=== PATIENT | female | born 1945 | race Caucasian/White ===

== ENCOUNTER → 2022-08-25 | Outpatient (CLI) | payer MEDICARE ==
[2022-08-25 12:48] VITALS: BP 186/80; PULSE 109; RESP 18; TEMP 98.1
--- NOTE | 2022-08-25 15:47 | P.PAINPG ---
PQRS Measure Charge Sheet Comment: HISTORY OF PRESENT ILLNESS: 77 yr old female as a referral from Dr Waters presents today w severe and chronic LBP secondary to DDD, spondylosis and facet arthropathy without myelopathy for evaluation. Pt states pain level is provoked at 10 /10 in intensity, constant, localized in the lower aspect of the lumbar spine where it meets the tailbone, sharp in character w shooting pain towards the BL buttocks and L calf. Pain is provoked by laying flat on her back. Pain is alleviated by medications (Tyl, Prednisone taper), topicals, injections (LESIs L5-S1 in Fall, 2021), heat, PT x 3 sessions which provoked pain, chiropractic treatments x 2 in the last 2 months which were ineffective, repositoning and rest. PMH: OA, HTN, Hyperlipidemia, DMII, Hypothyroidism, GERD, Iron Deficiency Anemia PSH: Small Bowel Resection (3 ft s/p CA diagnosis), Renal CA SH: Former tobacco user, No ETOH abuse, No illicit drug use. and lives w spouse. FH: Mo- COPD/ CAD All: NKDA Meds: See list REVIEW OF ORGAN SYSTEMS: CONSTITUTIONAL: No fevers or chills. No recent weight loss. NEUROLOGICAL: + numbness and tingling along the distal extremities. No seizure disorders or headaches. MUSCULOSKELETAL: + pain PSYCHIATRIC: Denies current depression or suicidal thoughts. Physical Examinations : Constitutional : Cooperative , not in acute distress . Neurologic : Cranial nerve II to XII intact. No focal neurological deficits. Psychiatric : alert & oriented x 3. Matching mood & appropriate affect. Judgment & insight intact. Musculoskeletal : Cervical Spine Motor strength in the deltoid and biceps: Normal right side. Normal Left side Motor strength biceps and the wrist extensors: Normal right side . Normal left side Motor strength in the triceps muscle: Normal right side. Normal left side Deep tendon reflexes: Normal at the biceps. Normal at Brachioradialis. Normal at triceps Vertebral body tenderness to deep palpation over Cervical facet loading test: positive bilaterally Spurling test: positive bilaterally Neck distraction test: positive bilaterally Octavio sign: positive bilaterally Lumbar spine Motor strength lower extremities ,thigh and legs 5/5 Right side , 5/5 Left side Deep tendon reflexes : Normal Knee Jerk. Normal Ankle Jerk Vertebral body tenderness over L5 Lumbar facet Loading Test: positive Right / positive Left Range of motion of the lumbar spine Flexion 30 degrees, extension 10 degrees Straight Leg Raise test: Left/ Right positive at degree Angie test: positive right / positive left. Severe tenderness over the Sacroiliac joint on the Right / Left sides Gaenslen test: positive bilaterally Seated flexion test: positive bilaterally. Sacral spine : Severe tenderness over the Sacroiliac joint: right side / left side Range of motion: Flexion of the lumbar spine <60 degrees Range of motion: Extension of the lumbar spine <20 degrees Gaenslen's Test positive Randolph's Test positive Angie test: positive right side / left side Thigh Thrust Test Sacral Thrust Test Imaging: MRI without contrast of the lumbar spine from 02/19/22 reviewed Assessment/ Plan : Lumbar DDD Recommendation of CARRIE L5-S1. Bhumi series of injections, up to 4 within a 12 month timeframe, for optimal pain relief. Risks, benefits of procedure discussed and patient verbalized understanding. Admits to aspirin or anti- coagulant use or medical history of diabetes. Protocol for discontinuation/ continuation of medications dasia procedure discussed. [place] 5/325 # 18 NR. Use, side effects and adverse reactions discussed, safe storage discussed and patient verbalized understanding. All questions answered. I have spent greater than 30 minutes on patient care today. Dr Case was available by phone for the evaluation of this patient. The time was used to review the medical records including relevant urine studies and Prescription history (MAPs), review of the available imaging, evaluation and examination of the patient, coordination of care with the medical staff and if applicable referring physicians, as well as creation of the medical record - Pain Location Bilateral Lower Back Non-Pharmacological Interventions: Chiropractic Treatment, Heat, Inactivity, Physical Therapy, Position/Reposition, Sitting Pharmacological Interventions: Epidural, PRN Medication, Topical Medication Home Medications: Ambulatory Orders HYDROcodone/APAP 5-325MG [[place] 5-325] 1 tab PO Q4HR PRN 3 Days #18 tab 08/25/22 Controlled Substance Measures - Controlled Substance Measures Is patient prescribed a controlled substance at discharge?: Yes When asked, does pt state using other controlled substances?: No If prescribed controlled substance>3 days was MAPS reviewed?: Prescribed <3 Days If Rx opioid, was Start Talking consent form obtained?: Yes Was information provided regarding opioid addiction?: Yes
== END ==
LOC: PNWHC3 12:09
PROVIDERS: ATTEND Anesthesiology
DX: M51.36 Other intervertebral disc degeneration, lumbar region (principal); M19.90 Unspecified osteoarthritis, unspecified site; I10 Essential (primary) hypertension; E78.5 Hyperlipidemia, unspecified; E11.9 Type 2 diabetes mellitus without complications; E03.9 Hypothyroidism, unspecified; K21.9 Gastro-esophageal reflux disease without esophagitis
CPT/HCPCS: 99211

== ENCOUNTER → 2022-11-24 | Outpatient (CLI) | payer MEDICARE ==
[2022-11-24 11:15] VITALS: BP 177/99; PULSE 100; RESP 18; TEMP 98.3
--- NOTE | 2022-11-24 15:30 | P.PAINPG ---
PQRS Measure Charge Sheet Comment: A 77 yr old female w at side with a history of severe and chronic LBP secondary to lumbar DDD and spondylosis with facet arthropathy without myelopathy presents today for evaluation s/p CARRIE L5-S1. Pt states she experienced 100 % pain relief x 2 mo s/p procedure. Pain level is provoked at 6 /10 in intensity, constant, localized in the lumbar spine, achy in character w shooting L & R of midline. Pain is provoked by walking for periods of 15 min or more. Pain is alleviated with medications (Tylenol), injections, chiropractic treatments in the past which have provoked pain, massage is at home, hot showers and rest. Interventional pain procedures completed include CARRIE L5-S1 x1 Patient is currently on Tyl Patient denies any side effects of the medication(s), denies excessive drowsiness or sleepiness, denies suicidal ideation and reports that the current pain medication is helping to control the pain and improve activities of daily living. Patient denies any motor or sensory deficits. Patient denies any fever or night sweats, denies any change in the bowel movements or urination. Physical Examination: -Constitutional: Cooperative. Not in acute distress . - Neurologic: Cranial nerve II to XII intact. No focal neurological deficits. - Psychatric: Alert & oriented x 3. Matching mood & appropriate affect. Judgment and insight intact. - Musculoskeletal: Cervical spine: Muscle bulk/ tone/ strength in the bilateral upper extremities normal Vertebral body tenderness to palpation over Spurling test positive Distraction test positive Facet loading test positive TTP Thoracic spine Muscle bulk / tone/ strength in the bilateral paraspinal muscles normal Vertebral body tender to palpation over Facet loading test positive TTP Lumbar spine: Motor bulk/ tone/ strength lower extremities , thigh and legs : 5/5 Deep tendon reflexes : Normal Knee Jerk. Normal Ankle Jerk . Vertebral body tenderness to palpation over L5 Lumbar Facet Loading Test positive Straight Leg Raise: positive at 30 degrees right side/ left side Gaenslen's Test positive Sacral spine : Severe tenderness over the Sacroiliac joint: right side / left side Range of motion: Flexion of the lumbar spine <60 degrees Range of motion: Extension of the lumbar spine <20 degrees Gaenslen's Test positive right side / left side Angie test: positive right side / left side Thigh Thrust Test positive right side / left side Sacral Thrust Test positive right side / left side Assessment and plan: Chronic LBP secondary to lumbar DDD, spondylosis with facet arthropathy without myelopathy Recommendation of CARRIE L5-S1 #2. May need a series of injections for optimal pain relief. Risks, benefits of procedure discussed and pt verbalized u nderstanding. Admits to anticoagulant use or medical history of diabetes. Protocol for discontinuation/ continuation of medications dasia procedure discussed. All questions answered. I have spent less than 30 minutes on patient care today. Dr Case was available by phone for the evaluation of this patient. The time was used to review the medical records including relevant urine studies and Prescription history (MAPs), review of the available imaging, evaluation and examination of the patient, coordination of care with the medical staff and if applicable referring physicians, as well as creation of the medical record PQRS Narrative: Hx Alcohol Use (MH) No Home Medications: Ambulatory Orders Acetaminophen [Tylenol Extra Strength] 1,000 mg PO TID PRN 09/22/22 Ascorbic Acid [Vitamin C] 500 mg PO DAILY 09/22/22 Atorvastatin [Lipitor] 20 mg PO HS 09/22/22 Biotin/Lutein [Biotin Plus 5,000 Mcg Tablet] 2 each PO DAILY 09/22/22 Cyanocobalamin (Vitamin B-12) [Vitamin B-12] 3,000 mcg PO DAILY 09/22/22 Famotidine [Pepcid] 20 mg PO BID 09/22/22 Folate 666 mcg PO DAILY 09/22/22 Folic Acid 0.4 mg PO DAILY 09/22/22 Levothyroxine Sodium 200 mcg PO Q48H 09/22/22 Losartan [Cozaar] 50 mg PO DAILY 09/22/22 Multivitamin [Multivitamins Adult Gummies] 2 each PO DAILY 09/22/22 [place]-3/Dha/Epa/Fish Oil [Fish Oil 1,000 mg Softgel] 1 each PO DAILY 09/22/22 Tolterodine Tartrate [Tolterodine Tartrate ER] 4 mg PO HS 09/22/22 Vitamin A 2,400 mcg PO DAILY 09/22/22 Vitamin E (Dl,Tocopheryl Acet) [Vitamin E (1000 Iu = 450 MG)] 1,000 units PO DAILY 09/22/22 Zinc Citrate [Zinc] 45 mg PO DAILY 09/22/22 metFORMIN HCL 1,000 mg PO BID 09/22/22 Controlled Substance Measures - Controlled Substance Measures Is patient prescribed a controlled substance at discharge?: No
== END ==
LOC: PNWHC3 09:59
PROVIDERS: ATTEND Specialist
DX: M51.36 Other intervertebral disc degeneration, lumbar region (principal); M47.816 Spondylosis without myelopathy or radiculopathy, lumbar region; G89.29 Other chronic pain; Z91.048 Other nonmedicinal substance allergy status
CPT/HCPCS: 99211

== ENCOUNTER 2022-12-23 10:33 | Day surgery (SDC) | payer MEDICARE ==
[~2022-12-23 10:33] MED LIST: LACTATED RINGERS 1,000 ML IV SCH; LIDOCAINE 1% (10MG/ML) FOR IV START INTRADERMA PRN
[2022-12-23 11:17] VITALS: TEMP 97.5
[2022-12-23 11:29] LABS: Glucose,Whole Blood 128 mg/dL (70-110)
[2022-12-23] MEDS ORDERED: IOPAMIDOL M200 10 ML VIAL ONE (11:37)
[2022-12-23] MEDS ORDERED: methylPREDNISolone ACETATE 40 MG/ML 1 ML VIAL ONE (11:37)
[2022-12-23] MEDS ORDERED: MIDAZOLAM 2 MG/2 ML VIAL ONE (11:37)
--- NOTE | 2022-12-23 11:43 | P.PCN ---
Date of Procedure: 12/23/22 Procedure(s) Performed: PREOPERATIVE DIAGNOSIS: 1- Lumbar Degenerative Disc Diseases 2-Lumbar spondylosis with Facet arthropathy without myelopathy. POSTOPERATIVE DIAGNOSIS: 1-lumbar degenerative disc disease. 2-lumbar spondylosis with facet arthropathy without myelopathy. PROCEDURE 1. Lumbar epidural steroid injection under fluoroscopic guidance at the L5-S1 level. (Fluoroscopy imaging was available in radiology department) 2. Lumbar epidurogram. ANESTHESIA: moderate sedation with intravenous Versed 2 mg . Sedation start time :1137 Sedation end time :1141 EBL: Minimal PROCEDURE INDICATION: The patient with low back pain and radiculitis symptoms unresponsive to conservative treatment. Fluoroscopy was used to optimize visualization of the needle placement and to maximize safety. PROCEDURE DESCRIPTION / TECHNIQUE: The patient was seen and identified in the preoperative area. Risks, benefits, complications including but not limited to infections ,bleeding ,allergic reaction to the medications ,nerve damage and not complete pain releife , and alternatives were discussed with the patient. The patient agreed to proceed with the procedure and signed the consent. IV was started, and vital signs were stable. Patient was taken to the OR and time out was completed. The patient was placed in the prone position on procedure table and a pillow was placed under the abdomen to reduce lumbar lordosis. The lumbosacral area was prepped and draped in the usual sterile fashion.ere closely monitored during the procedure. Conscious sedation was used during the procedure to decrease patients anxiety. Vital signs was monitered during the entire procedure. Using anterior-posterior fluoroscopy, the L5-S1 interlaminar space was identified and the skin over this site was marked and then infiltrated with 1% lidocaine subcutaneously. Subsequently, a 20-gauge Tuohy epidural needle was inserted and advanced toward the epidural space using the ``Loss of resistance technique and guided by AP and lateral fluoroscopy. The correct needle position in the epidural space was verified with the injection of 2 mL of the water soluble contrast dye Isovue 200 contrast and observing an excellent epidurogram with the epidural spread of the dye, after negative aspiration for blood and CSF and in the absence of paresthesias. Again after negative aspiration, a 6 ml mixture containing 40 mg of Depo-medrol ( Preservetive Free ), and 2 ml of preservative free Normal Saline, and 2 ml of preservative free lidocaine 1% solution was injected and a washout of epidurogram was seen. Needle was withdrawn intact, skin was cleansed, and bandages were applied. COMPLICATIONS: None DISPOSITION / PLANS: The patient was placed in a supine position and transferred to the recovery area in a stable condition for observation. There was no evidence of lower extremity motor or sensory deficit after the procedure. Patient was discharged from the recovery room after meeting discharge criteria. Home discharge instructions were given to the patient by the staff. The patient was reexamined prior to discharge. The patient will schedule a follow up in the clinic in 2-4 weeks.
[2022-12-23] MEDS ORDERED: LACTATED RINGERS 1,000 ML IV ONE (11:45)
[2022-12-23 11:54] VITALS: RESP 17
[2022-12-23 12:32] VITALS: BP 146/77; PULSE 97
--- NOTE | 2022-12-23 13:47 | FL ---
Intraoperative/procedural fluoroscopic services were provided. Total fluoroscopy time is 2.2 seconds with a total of 1 submitted images to PACS. Please see the operative/procedural note for further deta ils. DAP: [id number]
== END 2022-12-23 12:30 | disposition home or self-care (01) ==
LOC: ORPAIN 10:33
PROVIDERS: ATTEND Specialist
DX: M51.16 Intervertebral disc disorders with radiculopathy, lumbar region (principal); M47.26 Other spondylosis with radiculopathy, lumbar region; Z88.8 Allergy status to other drugs, medicaments and biological substances
CPT/HCPCS: 62323; J2250; J1030; Q9966

== ENCOUNTER → 2023-01-28 | Outpatient (CLI) | payer MEDICARE ==
--- NOTE | 2023-01-28 15:19 | P.PAINPG ---
PQRS Measure Charge Sheet Comment: A 77 yr old female w at side with a history of severe and chronic LBP secondary to lumbar DDD and spondylosis with facet arthropathy without myelopathy presents today for evaluation s/p CARRIE L5-S1 #2. Pt states she experienced 10 % pain relief x 5 wks s/p procedure. Pain level is provoked at 7 /10 in intensity, constant, localized in the lumbar spine, achy/ sharp in character w shooting towards the glutes. Pain is provoked by walking for periods of 5-10 min. Pain is alleviated with injections, PT years ago, chiropractic treatments multiple times monthly x 3 yrs which ended in January 2022, medications, hot showers, heat, ice, repositioning and rest. Oswetry pain score of 22. Interventional pain procedures include CARRIE L5-S1 x2 Patient is currently on Tyl Patient denies any side effects of the medication(s), denies excessive drowsiness or sleepiness, denies suicidal ideation and reports that the current pain medication is helping to control the pain and improve activities of daily living. Patient denies any motor or sensory deficits. Patient denies any fever or night sweats, denies any change in the bowel movements or urination. Physical Examination: -Constitutional: Cooperative. Not in acute distress . - Neurologic: Cranial nerve II to XII intact. No focal neurological deficits. - Psychatric: Alert & oriented x 3. Matching mood & appropriate affect. Judgment and insight intact. - Musculoskeletal: Cervical spine: Muscle bulk/ tone/ strength in the bilateral upper extremities normal Vertebral body tenderness to palpation over Spurling test positive Distraction test positive Facet loading test positive TTP Thoracic spine Muscle bulk / tone/ strength in the bilateral paraspinal muscles normal Vertebral body tender to palpation over Facet loading test positive TTP Lumbar spine: Motor bulk/ tone/ strength lower extremities , thigh and legs : 5/5 Deep tendon reflexes : Normal Knee Jerk. Normal Ankle Jerk . Vertebral body tenderness to palpation over Dukes Test positive Lumbar Facet Loading Test positive over BL L4-L5, L5-S1 Straight Leg Raise: positive at 30 degrees right side/ left side Gaenslen's Test positive Sacral spine : Severe tenderness over the Sacroiliac joint: right side / left side Range of motion: Flexion of the lumbar spine <60 degrees Range of motion: Extension of the lumbar spine <20 degrees Gaenslen's Test positive right side / left side Angie test: positive right side / left side Thigh Thrust Test positive right side / left side Sacral Thrust Test positive right side / left side Assessment and plan: Chronic LBP secondary to lumbar DDD, spondylosis with facet arthropathy without myelopathy Recommendation of BL MBB L4-L5, L5-S1 #1. May need a series of injections, up until RFA, for optimal pain relief. Risks, benefits of procedure discussed and pt verbalized understanding. Admits to anticoagulant use or medical history of diabetes. Protocol for discontinuation/ continuation of medications dasia procedure discussed. Minimal anesthesia provided, if clinically indicated, consisting of Versed and Fentanyl. All questions answered. I have spent less than 30 minutes on patient care today. Dr Case was available by phone for the evaluation of this patient. The time was used to review the medical records including relevant urine studies and Prescription history (MAPs), review of the available imaging, evaluation and examination of the patient, coordination of care with the medical staff and if applicable referring physicians, as well as creation of the medical record PQRS Narrative: Hx Alcohol Use (MH) No Home Medications: Ambulatory Orders Acetaminophen [Tylenol Extra Strength] 1,000 mg PO TID PRN 09/22/22 Ascorbic Acid [Vitamin C] 500 mg PO DAILY 09/22/22 Atorvastatin [Lipitor] 20 mg PO HS 09/22/22 Biotin/Lutein [Biotin Plus 5,000 Mcg Tablet] 2 each PO DAILY 09/22/22 Cyanocobalamin (Vitamin B-12) [Vitamin B-12] 3,000 mcg PO DAILY 09/22/22 Famotidine [Pepcid] 20 mg PO BID 09/22/22 Folate 666 mcg PO DAILY 09/22/22 Levothyroxine Sodium 200 mcg PO Q48H 09/22/22 Losartan [Cozaar] 50 mg PO DAILY 09/22/22 Multivitamin [Multivitamins Adult Gummies] 2 each PO DAILY 09/22/22 [place]-3/Dha/Epa/Fish Oil [Fish Oil 1,000 mg Softgel] 1 each PO DAILY 09/22/22 Tolterodine Tartrate [Tolterodine Tartrate ER] 4 mg PO HS 09/22/22 Vitamin A 2,400 mcg PO DAILY 09/22/22 Vitamin E (Dl,Tocopheryl Acet) [Vitamin E (1000 Iu = 450 MG)] 1,000 units PO DAILY 09/22/22 Zinc Citrate [Zinc] 45 mg PO DAILY 09/22/22 metFORMIN HCL 1,000 mg PO BID 09/22/22 Tramadol(Unk) 50 mg PO Q6H PRN 12/19/22 Controlled Substance Measures - Controlled Substance Measures Is patient prescribed a controlled substance at discharge?: No
[2023-01-28 15:24] VITALS: BP 161/89; PULSE 98; RESP 18; TEMP 98.1
== END ==
LOC: PNWHC3 14:03
PROVIDERS: ATTEND Specialist
DX: M51.37 Other intervertebral disc degeneration, lumbosacral region (principal); M47.817 Spondylosis without myelopathy or radiculopathy, lumbosacral region; M53.3 Sacrococcygeal disorders, not elsewhere classified; G89.29 Other chronic pain; Z91.048 Other nonmedicinal substance allergy status
CPT/HCPCS: 99211

== ENCOUNTER 2023-02-06 07:55 | Day surgery (SDC) | payer MEDICARE ==
[2023-02-06 08:27] VITALS: RESP 16; TEMP 97.4
[2023-02-06] MEDS ORDERED: LACTATED RINGERS 1,000 ML IV ONE (08:37)
[2023-02-06] MEDS ORDERED: ROPIVACAINE 5 MG/ML 20 ML AMPULE ONE (08:40)
[2023-02-06] MEDS ORDERED: MIDAZOLAM 2 MG/2 ML VIAL ONE (08:40)
[2023-02-06] MEDS ORDERED: methylPREDNISolone ACETATE 40 MG/ML 1 ML VIAL ONE (08:40)
[2023-02-06] MEDS ORDERED: fentaNYL (PF) 50 MCG/ML 2 ML AMP ONE (08:40)
--- NOTE | 2023-02-06 08:55 | P.PCN ---
Date of Procedure: 02/06/23 Procedure(s) Performed: PREOPERATIVE DIAGNOSIS : 1- Lumbar spondylosis with Facet Arthropathy without myelopathy . 2- Lumber degenerative disc disease POSTOPERATIVE DIAGNOSIS: 1- Lumbar spondylosis with Facet Arthropathy without myelopathy . 2- Lumber degenerative disc disease PROCEDURE: Diagnostic bilateral L3 , L4 , and L5 medial branch block under fluoroscopy guidance(fluoroscopy images available in the radiology Department ) ( To target the facet joint between Bilateral L4- 5 , and L5-S1 )#1st ANESTHESIA:, Monitored anesthesia care as per anesthesia department. EBL: Minimal COMPLICATION: None PROCEDURE INDICATION: Chronic low back pain secondary to Facet arthropathy unresponsive to conservative treatment. PROCEDURE DESCRIPTION: the patient was seen and identified in the preop holding area , risks and benefits and possible complications of the procedure and alternative were discussed with the patient, and the patient agreed to proceed with the procedure and signed the consent and vital signs monitored during the procedure and fluoroscopy was used to maximize the benefit and accuracy of the needle placement, and sedation was given to decrease patient anxiety, patient was taken to the procedure room and placed in prone position vital signs monitored in the back prepped with chlorhexidine X3 then under strict sterile technique using a right oblique fluoroscopy ,the junction of the transverse process and the superior articulating process of the right L3 , L4 , and L5 vertebra which corresponding to the fluoroscopy image of the eye of the Ji dog on the block side for the medial branches and subsequently , after local infiltration of skin and subcu tissuies with Ropivacaine 0.5 % , one mL at each level ,then 22-gauge Quincke-type needles , 3 needle was used , each one of them placed at the junction of the base of the transverse process and the superior articular process at the appropriate level, and the needle was advanced until the periosteum contacted, needle placement confirmed with AP oblique and lateral view and after appropriate needle placement confirmed, and after negative aspiration for heme and CSF and there was no paresthesia 1-1/2 mL of Ropivacaine 0.5% mixed with 20 mg Depo-Medrol , then half mL injected at each level after negative aspiration the needle subsequently removed and the same procedure repeated for the left side at left side at L3 , L4 and L5 levels. At the end of the procedure and the needles removed and a bandage applied after the skin was cleaned the cleaning solution patient taken to recovery room in stable condition and monitors in the recovery room for 20-30 minutes and discharged home in stable condition after discharge criteria met and patient will follow up with the pain clinic in 2-4 weeks
[2023-02-06] MEDS ORDERED: IV FLUID CONTINUATION 1,000 ML IV ONE ×2 (08:57)
[2023-02-06 09:00] LABS: Glucose,Whole Blood 131 mg/dL (70-110)
[2023-02-06 09:23] VITALS: BP 161/90; PULSE 102
--- NOTE | 2023-02-06 09:36 | FL ---
Intraoperative/procedural fluoroscopic services were provided. Total fluoroscopy time is 2.2 seconds with a total of 4 submitted images to PACS. Please see the operative/procedural note for further deta ils. DAP: [id number] [id number]
== END 2023-02-06 09:39 | disposition home or self-care (01) ==
LOC: ORPAIN 07:55
PROVIDERS: ATTEND Specialist
DX: M51.36 Other intervertebral disc degeneration, lumbar region (principal); M47.816 Spondylosis without myelopathy or radiculopathy, lumbar region; G89.29 Other chronic pain; I10 Essential (primary) hypertension; G47.33 Obstructive sleep apnea (adult) (pediatric); E03.9 Hypothyroidism, unspecified; E11.9 Type 2 diabetes mellitus without complications; Z88.8 Allergy status to other drugs, medicaments and biological substances; Z87.891 Personal history of nicotine dependence; Z79.899 Other long term (current) drug therapy; Z79.890 Hormone replacement therapy; Z90.710 Acquired absence of both cervix and uterus; Z98.890 Other specified postprocedural states
CPT/HCPCS: 64493; 64494 ×2; J2250; J1030; J3010; J2795

== ENCOUNTER → 2023-02-26 | Outpatient (CLI) | payer MEDICARE ==
[2023-02-26 11:35] VITALS: BP 128/64; PULSE 76; RESP 15; TEMP 97.2
--- NOTE | 2023-02-26 13:29 | P.PAINPG ---
PQRS Measure Charge Sheet Comment: A 77 yr old female w at side with a history of severe and chronic LBP secondary to lumbar DDD and spondylosis with facet arthropathy without myelopathy presents today for evaluation s/p BL MBB L4-L5, L5-S1 #1. Pt states she experienced 100 % pain relief x 2 days s/p procedure. Pain level is provoked at 7 /10 in intensity, constant, localized in the lumbar spine, achy/ sharp in character w shooting towards the glutes. Pain is provoked by walking for periods of 5-10 min. Pain is alleviated with injections, PT years ago, chiropractic treatments multiple times monthly x 3 yrs which ended in January 2022, medications, hot showers, heat, ice, repositioning and rest. Oswetry pain score of 22. Interventional pain procedures include CARRIE L5-S1 x2, BL MBB L3-L5 x1 Patient is currently on Tyl Patient denies any side effects of the medication(s), denies excessive drowsiness or sleepiness, denies suicidal ideation and reports that the current pain medication is helping to control the pain and improve activities of daily living. Patient denies any motor or sensory deficits. Patient denies any fever or night sweats, denies any change in the bowel movements or urination. Physical Examination: -Constitutional: Cooperative. Not in acute distress . - Neurologic: Cranial nerve II to XII intact. No focal neurological deficits. - Psychatric: Alert & oriented x 3. Matching mood & appropriate affect. Judgment and insight intact. - Musculoskeletal: Cervical spine: Muscle bulk/ tone/ strength in the bilateral upper extremities normal Vertebral body tenderness to palpation over Spurling test positive Distraction test positive Facet loading test positive TTP Thoracic spine Muscle bulk / tone/ strength in the bilateral paraspinal muscles normal Vertebral body tender to palpation over Facet loading test positive TTP Lumbar spine: Motor bulk/ tone/ strength lower extremities , thigh and legs : 5/5 Deep tendon reflexes : Normal Knee Jerk. Normal Ankle Jerk . Vertebral body tenderness to palpation over Dukes Test positive Lumbar Facet Loading Test positive over BL L4-L5, L5-S1 Straight Leg Raise: positive at 30 degrees right side/ left side Gaenslen's Test positive Sacral spine : Severe tenderness over the Sacroiliac joint: right side / left side Range of motion: Flexion of the lumbar spine <60 degrees Range of motion: Extension of the lumbar spine <20 degrees Gaenslen's Test positive right side / left side Angie test: positive right side / left side Thigh Thrust Test positive right side / left side Sacral Thrust Test positive right side / left side Assessment and plan: Chronic LBP secondary to lumbar DDD, spondylosis with facet arthropathy without myelopathy Recommendation of BL MBB L4-L5, L5-S1 #2. May need a series of injections, up until RFA, for optimal pain relief. Risks, benefits of procedure discussed and pt verbalized understanding. Admits to anticoagulant use or medica l history of diabetes. Protocol for discontinuation/ continuation of medications dasia procedure discussed. Minimal anesthesia provided, if clinically indicated, consisting of Versed and Fentanyl. All questions answered. I have spent less than 30 minutes on patient care today. Dr Case was available by phone for the evaluation of this patient. The time was used to review the medical records including relevant urine studies and Prescription history (MAPs), review of the available imaging, evaluation and examination of the patient, coordination of care with the medical staff and if applicable referring physicians, as well as creation of the medical record PQRS Narrative: Hx Alcohol Use (MH) No Home Medications: Ambulatory Orders Acetaminophen [Tylenol Extra Strength] 1,000 mg PO TID PRN 09/22/22 Ascorbic Acid [Vitamin C] 500 mg PO DAILY 09/22/22 Atorvastatin [Lipitor] 20 mg PO HS 09/22/22 Biotin/Lutein [Biotin Plus 5,000 Mcg Tablet] 2 each PO DAILY 09/22/22 Cyanocobalamin (Vitamin B-12) [Vitamin B-12] 3,000 mcg PO DAILY 09/22/22 Famotidine [Pepcid] 20 mg PO BID 09/22/22 Folate 666 mcg PO DAILY 09/22/22 Levothyroxine Sodium 200 mcg PO Q48H 09/22/22 Losartan [Cozaar] 50 mg PO DAILY 09/22/22 Multivitamin [Multivitamins Adult Gummies] 2 each PO DAILY 09/22/22 [place]-3/Dha/Epa/Fish Oil [Fish Oil 1,000 mg Softgel] 1 each PO DAILY 09/22/22 Tolterodine Tartrate [Tolterodine Tartrate ER] 4 mg PO HS 09/22/22 Vitamin A 2,400 mcg PO DAILY 09/22/22 Vitamin E (Dl,Tocopheryl Acet) [Vitamin E (1000 Iu = 450 MG)] 1,000 units PO DAILY 09/22/22 Zinc Citrate [Zinc] 45 mg PO DAILY 09/22/22 metFORMIN HCL 1,000 mg PO BID 09/22/22 Tramadol(Unk) 50 mg PO Q6H PRN 12/19/22 Controlled Substance Measures - Controlled Substance Measures Is patient prescribed a controlled substance at discharge?: No
== END ==
LOC: PNWHC3 10:56
PROVIDERS: ATTEND Specialist
DX: M51.37 Other intervertebral disc degeneration, lumbosacral region (principal); M47.817 Spondylosis without myelopathy or radiculopathy, lumbosacral region; G89.29 Other chronic pain; Z91.048 Other nonmedicinal substance allergy status; Z88.8 Allergy status to other drugs, medicaments and biological substances
CPT/HCPCS: 99211

== ENCOUNTER 2023-03-13 08:15 | Day surgery (SDC) | payer MEDICARE ==
[2023-03-13 08:45] VITALS: RESP 16; TEMP 96.9
[2023-03-13] MEDS ORDERED: LACTATED RINGERS 1,000 ML IV ONE ×2 (09:02→09:27)
[2023-03-13 09:08] LABS: Glucose,Whole Blood 140 mg/dL (70-110)
[2023-03-13] MEDS ORDERED: fentaNYL (PF) 50 MCG/ML 2 ML AMP ONE (09:09)
[2023-03-13] MEDS ORDERED: MIDAZOLAM 2 MG/2 ML VIAL ONE (09:09)
[2023-03-13] MEDS ORDERED: ROPIVACAINE 5 MG/ML 20 ML AMPULE ONE (09:13)
[2023-03-13] MEDS ORDERED: methylPREDNISolone ACETATE 40 MG/ML 1 ML VIAL ONE (09:13)
--- NOTE | 2023-03-13 09:24 | P.PCN ---
Date of Procedure: 03/13/23 Procedure(s) Performed: PREOPERATIVE DIAGNOSIS : 1- Lumbar spondylosis with Facet Arthropathy without myelopathy . 2- Lumber degenerative disc disease POSTOPERATIVE DIAGNOSIS: 1- Lumbar spondylosis with Facet Arthropathy without myelopathy . 2- Lumber degenerative disc disease PROCEDURE: Diagnostic bilateral L3 , L4 , and L5 medial branch block under fluoroscopy guidance(fluoroscopy images available in the radiology Department ) ( To target the facet joint between Bilateral L4- 5 , and L5-S1 )#2nd ANESTHESIA:, Monitored anesthesia care as per anesthesia department. EBL: Minimal COMPLICATION: None PROCEDURE INDICATION: Chronic low back pain secondary to Facet arthropathy unresponsive to conservative treatment. PROCEDURE DESCRIPTION: the patient was seen and identified in the preop holding area , risks and benefits and possible complications of the procedure and alternative were discussed with the patient, and the patient agreed to proceed with the procedure and signed the consent and vital signs monitored during the procedure and fluoroscopy was used to maximize the benefit and accuracy of the needle placement, and sedation was given to decrease patient anxiety, patient was taken to the procedure room and placed in prone position vital signs monitored in the back prepped with chlorhexidine X3 then under strict sterile technique using a right oblique fluoroscopy ,the junction of the transverse process and the superior articulating process of the right L3 , L4 , and L5 vertebra which corresponding to the fluoroscopy image of the eye of the Ji dog on the block side for the medial branches and subsequently , after local infiltration of skin and subcu tissuies with Ropivacaine 0.5 % , one mL at each level ,then 22-gauge Quincke-type needles , 3 needle was used , each one of them placed at the junction of the base of the transverse process and the superior articular process at the appropriate level, and the needle was advanced until the periosteum contacted, needle placement confirmed with AP oblique and lateral view and after appropriate needle placement confirmed, and after negative aspiration for heme and CSF and there was no paresthesia 1-1/2 mL of Ropivacaine 0.5% mixed with 20 mg Depo-Medrol , then half mL injected at each level after negative aspiration the needle subsequently removed and the same procedure repeated for the left side at left side at L3 , L4 and L5 levels. At the end of the procedure and the needles removed and a bandage applied after the skin was cleaned the cleaning solution patient taken to recovery room in stable condition and monitors in the recovery room for 20-30 minutes and discharged home in stable condition after discharge criteria met and patient will follow up with the pain clinic in 2-4 weeks
[2023-03-13 09:48] VITALS: BP 147/83; PULSE 95
--- NOTE | 2023-03-13 12:27 | FL ---
EXAMINATION TYPE: FL guided pain mgmt statistic DATE OF EXAM: 03/13/2023 FLUOROSCOPY Fluoroscopy time of 8 seconds was used during bilateral lumbar facet blocks. 4 image/s document/s th e procedure. DOSE AREA PRODUCT (DAP) UGY*M,MGY*CM: 11.14
== END 2023-03-13 10:01 | disposition home or self-care (01) ==
LOC: ORPAIN 08:15
PROVIDERS: ATTEND Specialist
DX: M51.36 Other intervertebral disc degeneration, lumbar region (principal); M47.816 Spondylosis without myelopathy or radiculopathy, lumbar region; G89.29 Other chronic pain; E78.5 Hyperlipidemia, unspecified; E11.9 Type 2 diabetes mellitus without complications; E07.9 Disorder of thyroid, unspecified; K21.9 Gastro-esophageal reflux disease without esophagitis; Z79.84 Long term (current) use of oral hypoglycemic drugs; Z79.890 Hormone replacement therapy; Z79.899 Other long term (current) drug therapy
CPT/HCPCS: 64493; 64494 ×2; J2250; J1030; J3010; J2795

== ENCOUNTER 2023-07-03 11:05 | Day surgery (SDC) | payer MEDICARE ==
[2023-07-03] MEDS ORDERED: LACTATED RINGERS 1,000 ML IV SCH (11:16)
[2023-07-03 11:42] LABS: Glucose,Whole Blood 109 mg/dL (70-110)
[2023-07-03 11:45] VITALS: TEMP 98.2
[2023-07-03] MEDS ORDERED: LACTATED RINGERS 950 ML IV ONE (12:34)
[2023-07-03] MEDS ORDERED: ROPIVACAINE 5MG/ML 20ML VIAL ONE (12:36)
[2023-07-03] MEDS ORDERED: MIDAZOLAM 2 MG/2 ML VIAL ONE (12:36)
[2023-07-03] MEDS ORDERED: methylPREDNISolone ACETATE 40 MG/ML 1 ML VIAL ONE (12:36)
[2023-07-03] MEDS ORDERED: LABETALOL 5 MG/ML VIAL MDV ONE (12:36)
[2023-07-03] MEDS ORDERED: fentaNYL (PF) 50 MCG/ML 2 ML AMP ONE (12:36)
--- NOTE | 2023-07-03 13:04 | P.PCN ---
Date of Procedure: 07/03/23 Procedure(s) Performed: PREOPERATIVE DIAGNOSIS: 1-Lumbar Spondylosis with Facet Arthropathy without myelopathy. 2- Lumber degenerative disc disease. POSTOPERATIVE DIAGNOSIS: 1- Lumbar Spondylosis with Facet Arthropathy without myelopathy. 2- Lumber degenerative disc disease. PROCEDURES : Bilateral Radiofrequency thermocoagulation, L3 , L4 , and L5 medial branch, with fluoroscopic guidance (fluoroscopy images available in the radiology department) ( to denervate the facet joint at bilateral L4-5 ,and L5-S1 levels ). ANESTHESIA: Monitored anesthesia care as per anesthesia department . EBL: Minimal PROCEDURE INDICATION: The patient with low back pain secondary to lumbar facet arthropathy who had more than 50% relief of her pain with previous diagnostic lumbar medial branch block with bupivacaine. PROCEDURE DESCRIPTION / TECHNIQUE: The patient was seen and identified in the preoperative area. Risks, benefits, complications, including but not limited to risk of infection ,bleeding , allergic reactions to the medications and no complete pain releife , and alternatives were discussed with the patient, the patient agreed to proceed with the procedure and signed the consent. IV was started. Vital signs remained stable throughout the procedure. Patient was taken to the OR and time out was completed. The patient was placed in the prone position on the procedure table. The lumber area was prepped and draped in the usual sterile fashion. . Vital signs were closely monitored during the procedure .IV sedation was used during the procedure to decrease patients anxiety. Using AP and then oblique fluoroscopy, the ``eye of the Ji dog cor responding to the connection between the superior and transverse articular processes of right L3, L4, and L5 were identified, marked, and localized with 1% lidocaine. Subsequently, a 18 [id number] radiofrequency cannula with a 10- mm active tip was advanced guided by fluoroscopy to each of the``eyes of the Ji dog at right L3, L4, and L5. Each site then underwent sensory testing at 50 Hz and 0 to 1 volt and motor testing at 2.5 Hz and 0 to 3 volt with local stimulation, but no radicular symptoms down the legs. Thereafter each sites underwent radiofrequency thermocoagulation at 80 degrees celsius for 90 seconds after injecting 0.5 ml of PF Ropivacaine 1ml, then after the thermocoagulation done , 1 ml of the block solution containing Depo-Medrol 20 mg and 3 ml of Ropivacaine 0.5% was injected at the right L3 , L4 , and L5 , levels after negative aspiration of CSF and blood and with no paresthesias. Cannulas were retracted while injecting lidocaine 1% until the needle is out. The same procedure was repeated at the level of Left L3, L4, and L5 levels. At the end of the procedure, the skin was cleansed and bandages were applied. COMPLICATIONS: No acute complications. DISPOSITION / PLANS: The patient was placed in a supine position and transferred to the recovery area in a stable condition for observation and was discharged from the recovery room after meeting discharge criteria. Home discharge instructions given to the patient by the staff. The patient was reexamined prior to discharge. The patient will schedule a follow up in the clinic in 2-4 weeks.
[2023-07-03] MEDS ORDERED: LACTATED RINGERS 1,000 ML IV ONE (13:05)
[2023-07-03 13:31] VITALS: BP 151/84; PULSE 92; RESP 14
--- NOTE | 2023-07-03 13:49 | FL ---
EXAMINATION TYPE: FL guided pain mgmt statistic DATE OF EXAM: 07/03/2023 HISTORY: Fluoroscopy time Total dose area product (DAP) in uGy*m?, mGy*cm? (or similar): 0.68024 IMPRESSION: 1. Fluoroscopy time.
== END 2023-07-03 13:37 | disposition home or self-care (01) ==
LOC: ORPAIN 11:05
PROVIDERS: ATTEND Pain Medicine Interventional Pain Medicine
DX: M51.36 Other intervertebral disc degeneration, lumbar region (principal); M47.816 Spondylosis without myelopathy or radiculopathy, lumbar region; I10 Essential (primary) hypertension; E78.5 Hyperlipidemia, unspecified; G47.33 Obstructive sleep apnea (adult) (pediatric); E11.9 Type 2 diabetes mellitus without complications; E07.9 Disorder of thyroid, unspecified; Z79.84 Long term (current) use of oral hypoglycemic drugs; Z79.890 Hormone replacement therapy; Z79.899 Other long term (current) drug therapy; Z96.651 Presence of right artificial knee joint; Z98.890 Other specified postprocedural states; Z91.048 Other nonmedicinal substance allergy status
CPT/HCPCS: 64635; 64636 ×2; J2250; J1030; J3010; J2795; J1920

== ENCOUNTER → 2023-08-26 | Outpatient (CLI) | payer MEDICARE ==
--- NOTE | 2023-08-26 14:11 | P.PAINPG ---
Objective - Vital Signs Vital signs: Intake & Output 08/25/23 08/26/23 08/26/23 18:59 06:59 18:59 Weight 76.657 kg PQRS Measure Charge Sheet Comment: A 78 yr old female w at side with a history of severe and chronic LBP secondary to lumbar DDD and spondylosis with facet arthropathy without myelopathy presents today for evaluation s/p BL RFA L4-L5, L5-S1. Pt states she experienced 0 % pain relief s/p procedure. Pain level is provoked at 10 /10 in intensity, constant, localized in the lumbar spine, predominantly axial, achy in character w shooting towards the glutes. Pain is provoked by walking for periods of 5-10 min. Pain is alleviated with injections, PT x 2 wks which she is currently in, chiropractic treatments multiple times monthly x 3 yrs which ended in January 2022, physician guided stretches daily since Jan 2022, medications, hot showers, heat, ice, repositioning and rest. Oswestry axial pain score of 22. Interventional pain procedures include CARRIE L5-S1 x2, BL RFA L3-L5 (Jul 2023) Patient is currently on Tyl Patient denies any side effects of the medication(s), denies excessive drowsiness or sleepiness, denies suicidal ideation and reports that the current pain medication is helping to control the pain and improve activities of daily living. Patient denies any motor or sensory deficits. Patient denies any fever or night sweats, denies any change in the bowel movements or urination. Physical Examination: -Constitutional: Cooperative. Not in acute distress . - Neurologic: Cranial nerve II to XII intact. No focal neurological deficits. - Psychatric: Alert & oriented x 3. Matching mood & appropriate affect. Judgment and insight intact. - Musculoskeletal: Cervical spine: Muscle bulk/ tone/ strength in the bilateral upper extremities normal Vertebral body tenderness to palpation over Spurling test positive Distraction test positive Facet loading test positive TTP Thoracic spine Muscle bulk / tone/ strength in the bilateral paraspinal muscles normal Vertebral body tender to palpation over Facet loading test positive TTP Lumbar spine: Motor bulk/ tone/ strength lower extremities , thigh and legs : 5/5 Deep tendon reflexes : Normal Knee Jerk. Normal Ankle Jerk . Vertebral body tenderness to palpation over Dukes Test positive Lumbar Facet Loading Test positive over BL L4-L5, L5-S1 Straight Leg Raise: positive at 30 degrees right side/ left side Gaenslen's Test positive Sacral spine : Severe tenderness over the Sacroiliac joint: right side / left side Range of motion: Flexion of the lumbar spine <60 degrees Range of motion: Extension of the lumbar spine <20 degrees Gaenslen's Test positive right side / left side Angie test: positive right side / left side Thigh Thrust Test positive right side / left side Sacral Thrust Test positive right side / left side Assessment and plan: Chronic LBP secondary to lumbar DDD, spondylosis with facet arthropathy without myelopathy Recommendation of BL iliolumbar ligament injection #1. May need a series of injections for optimal pain relief. Risks, benefits of procedure discussed and pt verbalized understanding. Admits to anticoagulant use or medical history of diabetes. Protocol for discontinuation/ continuation of medications dasia procedure discussed. Minimal anesthesia provided, if clinically indicated, consisting of Versed and Fentanyl. All questions answered. I have spent less than 30 minutes on patient care today. Dr Case was available by phone for the evaluation of this patient. The time was used to review the medical records including relevant urine studies and Prescription history (MAPs), review of the available imaging, evaluation and examination of the patient, coordination of care with the medical staff and if applicable referring physicians, as well as creation of the medical record PQRS Narrative: Hx Alcohol Use (MH) No Home Medications: Ambulatory Orders Acetaminophen [Tylenol Extra Strength] 1,000 mg PO TID PRN 09/22/22 Atorvastatin [Lipitor] 20 mg PO HS 09/22/22 Famotidine [Pepcid] 20 mg PO BID 09/22/22 Levothyroxine Sodium 200 mcg PO Q48H 09/22/22 Losartan [Cozaar] 50 mg PO DAILY 09/22/22 Tolterodine Tartrate [Tolterodine Tartrate ER] 4 mg PO HS 09/22/22 metFORMIN HCL 1,000 mg PO BID 09/22/22 Metoprolol Succinate [Metoprolol Succinate ER] 25 mg PO DAILY 07/01/23 Controlled Substance Measures - Controlled Substance Measures Is patient prescribed a controlled substance at discharge?: No
[2023-08-26 14:32] VITALS: BP 148/84; PULSE 87; RESP 15; TEMP 97.6
== END ==
LOC: PNWHC3 13:34
PROVIDERS: ATTEND Specialist
DX: M51.37 Other intervertebral disc degeneration, lumbosacral region (principal); M47.817 Spondylosis without myelopathy or radiculopathy, lumbosacral region; G89.29 Other chronic pain; Z91.048 Other nonmedicinal substance allergy status; Z91.09 Other allergy status, other than to drugs and biological substances
CPT/HCPCS: 99211

== ENCOUNTER 2023-09-08 11:03 | Day surgery (SDC) | payer MEDICARE ==
[~2023-09-08 11:03] MED LIST changes: -LIDOCAINE 1% (10MG/ML) FOR IV START INTRADERMA PRN
[2023-09-08 11:31] LABS: Glucose,Whole Blood 130 mg/dL (70-110)
[2023-09-08 11:35] VITALS: TEMP 97.3
[2023-09-08] MEDS ORDERED: ROPIVACAINE 5MG/ML 20ML VIAL ONE (11:47)
[2023-09-08] MEDS ORDERED: IOPAMIDOL M200 10 ML VIAL ONE (11:47)
[2023-09-08] MEDS ORDERED: methylPREDNISolone ACETATE 40 MG/ML 1 ML VIAL ONE (11:47)
--- NOTE | 2023-09-08 11:55 | P.PCN ---
Date of Procedure: 09/08/23 Description of Procedure: Procedure: Bilateral iliolumbar ligament injection Preoperative Diagnosis: myofascial pain syndrome Postoperative diagnosis: Same Anesthesia: Local Surgeon: Bryan Saucedo MD Indications for procedure: Patient with myofascial pain and palpable trigger points in the above mentioned muscles. The patient consents for an injection after an explanation of risks including but not limited to bleeding and infection, benefits, and alternatives and the patient has signed a consent form indicating understanding of all of them. Description of procedure: After informed consent was obtained the patient's painful area was sterilely prepped in the usual fashion with ChloraPrep. The iliolumbar ligament was identified under fluoroscopy using a 25-gauge needle and Isovue 180. Each point was injected with a 25-gauge three and a half inch needle. At that point a solution consisting of 10 ml of 0.5% ropivacaine with 40mg of depomedrol was distributed evenly between the right and the left. The patient's vital signs were stable afterwards and the procedure was tolerated well. Patient was discharged home with follow-up instructions. It was explained to the patient that these injections are not curative but may help with the current symptoms. In order to strengthen the muscles involved, there needs to be dedicated exercise routine to strengthen the muscles and avoid significant muscle spasms..
--- NOTE | 2023-09-08 12:04 | FL ---
EXAMINATION TYPE: FL guided pain mgmt statistic Intraoperative/procedural fluoroscopic services were provided. Total fluoroscopy time is 3.4 seconds with a total of 2 submitted images to PACS. Please se e the operative/procedural note for further details. DAP: 0.16874 mGym2
[2023-09-08 12:05] VITALS: RESP 16
[2023-09-08 12:18] LABS: Glucose,Whole Blood 112 mg/dL (70-110)
[2023-09-08 12:34] VITALS: BP 151/87; PULSE 84
== END 2023-09-08 12:18 | disposition home or self-care (01) ==
LOC: ORPAIN 11:03
PROVIDERS: ATTEND Hospitalist
DX: M79.18 Myalgia, other site (principal); E11.9 Type 2 diabetes mellitus without complications; Z88.8 Allergy status to other drugs, medicaments and biological substances
CPT/HCPCS: 64425; J1030; Q9966; J2795

== ENCOUNTER → 2023-09-30 | Outpatient (CLI) | payer MEDICARE ==
[2023-09-30 14:18] VITALS: BP 148/94; PULSE 89; RESP 15; TEMP 97.3
--- NOTE | 2023-09-30 14:31 | P.PAINPG ---
PQRS Measure Charge Sheet Comment: A 78 yr old female w at side with a history of severe and chronic LBP since 2018 secondary to lumbar DDD and spondylosis with facet arthropathy without myelopathy presents today for evaluation s/p BL Iliolumbar ligament injection #1. Pt states she experienced 20 % pain relief s/p procedure. Pain lev el is provoked at 8 /10 in intensity, constant, localized in the lumbar spine, predominantly axial, achy in character without radiation of pain. Pain is provoked by walking for periods > 10 min. Pain is alleviated with injections, PT x 8 wks which she is currently in, chiropractic treatments multiple times monthly x 3 yrs which ended in January 2022, physician guided stretches daily since Jan 2022, medications, hot showers, heat, ice, repositioning and rest. Oswestry axial pain score of 22. Interventional pain procedures include CARRIE L5-S1 x2, BL RFA L3-L5 (Jul 2023), BL Iliolumbar x1 Patient is currently on Tyl Patient denies any side effects of the medication(s), denies excessive drowsiness or sleepiness, denies suicidal ideation and reports that the current pain medication is helping to control the pain and improve activities of daily living. Patient denies any motor or sensory deficits. Patient denies any fever or night sweats, denies any change in the bowel movements or urination. Physical Examination: -Constitutional: Cooperative. Not in acute distress . - Neurologic: Cranial nerve II to XII intact. No focal neurological deficits. - Psychatric: Alert & oriented x 3. Matching mood & appropriate affect. Judgment and insight intact. - Musculoskeletal: Cervical spine: Muscle bulk/ tone/ strength in the bilateral upper extremities normal Vertebral body tenderness to palpation over Spurling test positive Distraction test positive Facet loading test positive TTP Thoracic spine Muscle bulk / tone/ strength in the bilateral paraspinal muscles normal Vertebral body tender to palpation over Facet loading test positive TTP Lumbar spine: Motor bulk/ tone/ strength lower extremities , thigh and legs : 5/5 Deep tendon reflexes : Normal Knee Jerk. Normal Ankle Jerk . Vertebral body tenderness to palpation over Dukes Test positive Lumbar Facet Loading Test positive Straight Leg Raise: positive at 30 degrees right side/ left side Gaenslen's Test positive Sacral spine : Severe tenderness over the Sacroiliac joint: right side / left side Range of motion: Flexion of the lumbar spine <60 degrees Range of motion: Extension of the lumbar spine <20 degrees Gaenslen's Test positive right side / left side Angie test: positive right side > left side Thigh Thrust Test positive right side / left side Sacral Thrust Test positive right side > left side Assessment and plan: Chronic LBP secondary to lumbar DDD, spondylosis with facet arthropathy without myelopathy, BL Sacroiliitis Recommendation of BL SI injection #1. May need a series of injections for optimal pain relief. Risks, benefits of procedure discussed and pt verbalized understanding. Admits to anticoagulant use or medical history of diabetes. Protocol for discontinuation/ continuation of medications dasia procedure discussed. All questions answered. I have spent less than 30 minutes on patient care today. Dr Case was available by phone for the evaluation of this patient. The time was used to review the medical records including relevant urine studies and Prescription history (MAPs), review of the available imaging, evaluation and examination of the patient, coordination of care with the medical staff and if applicable referring physicians, as well as creation of the medical record PQRS Narrative: Hx Alcohol Use (MH) No Home Medications: Ambulatory Orders Acetaminophen [Tylenol Extra Strength] 1,000 mg PO TID PRN 09/22/22 Atorvastatin [Lipitor] 20 mg PO HS 09/22/22 Famotidine [Pepcid] 20 mg PO BID 09/22/22 Levothyroxine Sodium 200 mcg PO Q48H 09/22/22 Losartan [Cozaar] 50 mg PO QAM 09/22/22 Tolterodine Tartrate [Tolterodine Tartrate ER] 4 mg PO HS 09/22/22 metFORMIN HCL 1,000 mg PO BID 09/22/22 Metoprolol Succinate [Metoprolol Succinate ER] 25 mg PO HS 07/01/23 Controlled Substance Measures - Controlled Substance Measures Is patient prescribed a controlled substance at discharge?: No
== END ==
LOC: PNWHC3 13:09
PROVIDERS: ATTEND Specialist
DX: M51.36 Other intervertebral disc degeneration, lumbar region (principal); M47.816 Spondylosis without myelopathy or radiculopathy, lumbar region; G89.29 Other chronic pain; M46.1 Sacroiliitis, not elsewhere classified; Z91.048 Other nonmedicinal substance allergy status; Z88.8 Allergy status to other drugs, medicaments and biological substances
CPT/HCPCS: 99211

== ENCOUNTER 2023-10-20 11:42 | Day surgery (SDC) | payer MEDICARE ==
[2023-10-20] MEDS ORDERED: LACTATED RINGERS 1,000 ML IV SCH (12:15)
[2023-10-20 12:20] LABS: Glucose,Whole Blood 93 mg/dL (70-110)
[2023-10-20 12:32] VITALS: RESP 16; TEMP 98
[2023-10-20] MEDS ORDERED: TRIAMCINOLONE ACETONIDE 40 MG/ML 1 ML VIAL ONE (13:10)
[2023-10-20] MEDS ORDERED: ROPIVACAINE 5MG/ML 20ML VIAL ONE (13:10)
[2023-10-20] MEDS ORDERED: IOPAMIDOL M200 10 ML VIAL ONE (13:10)
[2023-10-20 13:30] LABS: Glucose,Whole Blood 85 mg/dL (70-110)
--- NOTE | 2023-10-20 13:36 | FL ---
EXAMINATION TYPE: FL guided pain mgmt statistic DATE OF EXAM: 10/20/2023 HISTORY: Fluoroscopy time Total dose area product (DAP) in uGy*m?, mGy*cm? (or similar): 0.75045 IMPRESSION: 1. Fluoroscopy time.
[2023-10-20 13:42] VITALS: BP 161/87; PULSE 80
--- NOTE | 2023-11-30 09:47 | P.PCN ---
Date of Procedure: 10/20/23 Procedure(s) Performed: Preoperative diagnoses: 1. Lumbosacral Spondylosis 2. Bilateral sacroiliitis. Postoperative diagnoses: Same as preoperative diagnosis. Procedure: Bilateral sacroiliac joint steroid injection under fluoroscopic guidance. Surgeon: Maurice Garrison M.D. Anesthesia: local infiltration with lidocaine 1% 4 ml EBL: None Procedure indication: The patient had a history of severe chronic low back pain, diagnosed with sacroiliitis and lumbar sacral facet arthropathy unresponsive to conservative treatment. Procedure description: The patient was seen and identified in the preoperative holding area, risks and benefits and alternative of the procedure and possible complications discussed with the patient, and he agreed with the preceding, patient signed the consent, an IV was started, and vital signs were monitored and were stable throughout the procedure, patient was placed in the prone position or table and the lumbosacral area was prepped and draped with a sterile fashion, vital signs were closely monitored during the procedure, the fluoroscopy camera was placed in the contralateral oblique view on the right sacroiliac joint and the lower part of the joint was identified a 2 mL then a 25-gauge Quincke-type spinal needle advanced slowly under fluoroscopy and placed in the posterior and inferior border of the right sacroiliac joint, placement confirmed with AP and lateral view, and after appropriate needle placement confirmed and after negative aspiration for heme and CSF and there was , 3 ml of Ropivacaine 0.5% and 40 mg of Kenalog injected after negative aspiration, no paresthesia during the injection, no resistance to injection, and the needle was removed. The entire same procedure was repeated for the left sacroiliac joint Patient tolerated the procedure well without any complication. The patient returned to supine position after the back was cleaned and a Band- Aid applied, the patient transported to recovery room in stable condition and he was monitored for 30 minutes before he was discharged home and then patient was reexamined before going home and patient was discharged in stable condition and patient will follow up with the pain clinic in a few weeks
== END 2023-10-20 13:54 | disposition home or self-care (01) ==
LOC: ORPAIN 11:42
PROVIDERS: ATTEND Anesthesiology
DX: M46.1 Sacroiliitis, not elsewhere classified (principal); M47.817 Spondylosis without myelopathy or radiculopathy, lumbosacral region; G89.29 Other chronic pain; Z88.8 Allergy status to other drugs, medicaments and biological substances; Z91.048 Other nonmedicinal substance allergy status
CPT/HCPCS: 27096; J3301; Q9966; J2795

== ENCOUNTER → 2023-11-04 | Outpatient (CLI) | payer MEDICARE ==
--- NOTE | 2023-11-04 14:27 | P.PAINPG ---
Objective - Vital Signs Vital signs: Intake & Output 11/03/23 11/04/23 11/04/23 18:59 06:59 18:59 Weight 65.771 kg PQRS Measure Charge Sheet Comment: A 78 yr old female w at side with a history of severe and chronic LBP since 2018 secondary to lumbar DDD and spondylosis with facet arthropathy without myelopathy presents today for evaluation s/p BL SI injection #1. Pt states she experienced 100 % pain relief x 2-3 wks s/p procedure. Pain level is provoked at 1 /10 in intensity, constant, localized in the lumbar spine, predominantly axial, achy in character without radiation of pain. Pain is provoked by sitting. Pain is alleviated with injections, PT x 8 wks which ended in Sep 2023, chiropractic treatments multiple times monthly x 3 yrs which ended in January 2022, physician guided stretches daily since Jan 2022, medications, use of a cane for ambulatory assistance, hot showers, heat, ice, repositioning and rest. Oswestry axial pain score of 20. Interventional pain procedures include CARRIE L5-S1 x2, BL RFA L3-L5 (Jul 2023), BL Iliolumbar x1, BL SI x1 (Oct 2023) Patient is currently on Tyl Patient denies any side effects of the medication(s), denies excessive drowsiness or sleepiness, denies suicidal ideation and reports that the current pain medication is helping to control the pain and improve activities of daily living. Patient denies any motor or sensory deficits. Patient denies any fever or night sweats, denies any change in the bowel movements or urination. Physical Examination: -Constitutional: Cooperative. Not in acute distress . - Neurologic: Cranial nerve II to XII intact. No focal neurological deficits. - Psychatric: Alert & oriented x 3. Matching mood & appropriate affect. Judgment and insight intact. - Musculoskeletal: Cervical spine: Muscle bulk/ tone/ strength in the bilateral upper extremities normal Vertebral body tenderness to palpation over Spurling test positive Distraction test positive Facet loading test positive TTP Thoracic spine Muscle bulk / tone/ strength in the bilateral paraspinal muscles normal Vertebral body tender to palpation over Facet loading test positive TTP Lumbar spine: Motor bulk/ tone/ strength lower extremities , thigh and legs : 5/5 Deep tendon reflexes : Normal Knee Jerk. Normal Ankle Jerk . Vertebral body tenderness to palpation over L4 Dukes Test positive BL L4-L5 L> R Lumbar Facet Loading Test positive Straight Leg Raise: positive at 30 degrees right side/ left side Gaenslen's Test positive Sacral spine : Severe tenderness over the Sacroiliac joint: right side / left side Range of motion: Flexion of the lumbar spine <60 degrees Range of motion: Extension of the lumbar spine <20 degrees Gaenslen's Test positive right side / left side Angie test: positive right side > left side Thigh Thrust Test positive right side / left side Sacral Thrust Test positive right side > left side Assessment and plan: Chronic LBP secondary to lumbar DDD, spondylosis with facet arthropathy without myelopathy, BL Sacroiliitis Recommendation of BL TFESI L4-L5 #1. May need a series of injections for optimal pain relief. Risks, benefits of procedure discussed and pt verbalized understanding. Admits to anticoagulant use or medical history of diabetes. Protocol for discontinuation/ continuation of medications dasia procedure discussed. All questions answered. I have spent less than 30 minutes on patient care today. Dr Case was available by phone for the evaluation of this patient. The time was used to review the medical records including relevant urine studies and Prescription history (MAPs), review of the available imaging, evaluation and examination of the patient, coordination of care with the medical staff and if applicable referring physicians, as well as creation of the medical record PQRS Narrative: Hx Alcohol Use (MH) No Home Medications: Ambulatory Orders Acetaminophen [Tylenol Extra Strength] 1,000 mg PO TID PRN 09/22/22 Atorvastatin [Lipitor] 20 mg PO HS 09/22/22 Famotidine [Pepcid] 20 mg PO BID 09/22/22 Levothyroxine Sodium 200 mcg PO Q48H 09/22/22 Losartan [Cozaar] 50 mg PO QAM 09/22/22 Tolterodine Tartrate [Tolterodine Tartrate ER] 4 mg PO HS 09/22/22 metFORMIN HCL 1,000 mg PO BID 09/22/22 Metoprolol Succinate [Metoprolol Succinate ER] 25 mg PO HS 07/01/23 Controlled Substance Measures - Controlled Substance Measures Is patient prescribed a controlled substance at discharge?: No
[2023-11-04 14:32] VITALS: BP 163/87; PULSE 82; RESP 16; TEMP 98
== END ==
LOC: PNWHC3 13:04
PROVIDERS: ATTEND Specialist
DX: M46.1 Sacroiliitis, not elsewhere classified (principal); M51.36 Other intervertebral disc degeneration, lumbar region; M47.816 Spondylosis without myelopathy or radiculopathy, lumbar region; G89.29 Other chronic pain; Z91.048 Other nonmedicinal substance allergy status; Z88.8 Allergy status to other drugs, medicaments and biological substances
CPT/HCPCS: 99211

== ENCOUNTER → 2023-12-18 | Outpatient (CLI) | payer MEDICARE ==
[2023-12-18 12:24] LABS: African American GFR (CKD) >90 (>60 ml/min/1.73 sqM); Blood Urea Nitrogen 17 mg/dL (7-17); Non-African American GFR(CKD) 84 (>60 ml/min/1.73 sqM)
[2023-12-18 12:40] LABS: ALT 17 U/L (4-34); African American GFR (CKD) >90 (>60 ml/min/1.73 sqM); Albumin 4.7 g/dL (3.5-5.0); Albumin/Globulin Ratio 1.7; Anion Gap 10 mmol/L; Blood Urea Nitrogen 17 mg/dL (7-17); Calcium 9.6 mg/dL (8.4-10.2); Carbon Dioxide 19 mmol/L (22-30); Chloride 110 mmol/L (98-107); Globulin 2.8 g/dL; Glucose 105 mg/dL (74-99); Non-African American GFR(CKD) 83 (>60 ml/min/1.73 sqM); Sodium 139 mmol/L (137-145); Total Bilirubin 0.4 mg/dL (0.2-1.3); Total Protein 7.5 g/dL (6.3-8.2)
--- NOTE | 2023-12-18 12:50 | XR ---
EXAMINATION TYPE: XR chest 2V DATE OF EXAM: 12/18/2023 COMPARISON: NONE HISTORY: Shortness of breath TECHNIQUE: Frontal and lateral views of the chest are obtained. FINDINGS: Scattered senescent parenchymal changes noted. Hyperinflation compatible with COPD. No evidence for infiltrate. No evidence for atelectasis. Heart size is stable. Mediastinal structures are stable and grossly unremarkable. No evidence for hilar prominence. Degenerative changes dorsal spine. IMPRESSION: 1. No evidence for acute pulmonary disease.
[2023-12-18 12:52] LABS: AST 19 U/L (14-36); Alkaline Phosphatase 71 U/L (38-126); Potassium 4.8 mmol/L (3.5-5.1)
--- NOTE | 2023-12-18 13:04 | CT ---
EXAMINATION TYPE: CT abdomen wo/w con DATE OF EXAM: 12/18/2023 COMPARISON: No prior studies at this institution HISTORY: f/u renal cancer CT DLP: 983.1 mGycm CONTRAST: CT scan of the abdomen is performed with Oral Contrast and without and with IV Contrast, patient inje cted with 100 mL of Isovue 370. FINDINGS: LUNG BASES-: No visible nodule. No infiltrate. LIVER/GB: No calcified gallstones. No space occupying hepatic lesion. Biliary tree is of normal ca liber. PANCREAS: No inflammation. No distinct mass. SPLEEN: No splenic enlargement. No lesion seen. ADRENALS: No nodule. No thickening. KIDNEYS/BLADDER: Postsurgical change mid right kidney. No recurrent or residual mass present. No hydr onephrosis or nephrolithiasis. No new renal mass seen. BOWEL: Normal appendix. Normal bowel caliber. No inflammation. LYMPH NODES: No greater than 1cm abdominal or pelvic lymph nodes are appreciated. AORTA: No significant abnormality. OSSEOUS STRUCTURES: No significant abnormality is seen. OTHER: No significant additional abnormality is seen. IMPRESSION: 1. Postsurgical change mid right kidney. No recurrent or residual mass present
== END | disposition home or self-care (01) ==
LOC: RADCTMAIN 11:27
PROVIDERS: ATTEND Urology
DX: C64.1 Malignant neoplasm of right kidney, except renal pelvis (principal)
CPT/HCPCS: 80053; 82565; 84520; 71046; 74170; 36415; Q9967